=== PATIENT | female | born 1945 | race Caucasian/White ===

== ENCOUNTER 2019-03-25 09:32 | Observation (INO) | payer MEDICARE, BC ==
[2019-03-25 09:51] LABS: #Eosinphils 0.1 thou/uL (0.0-0.7); #Lymphocytes 1.8 thou/uL (1.20-3.40); #Monocytes 0.5 thou/uL (0.11-0.59); #Neutrophils 3.5 thou/uL (1.40-6.50); %Basophils 0.7 % (0.0-1.0); %Eosinophils 1.9 % (0.0-10.0); %Lymphocytes 29.9 % (21.0-51.0); %Monocytes 7.9 % (0.0-10.0); %Neutrophils 59.6 % (42.0-75.0); Hemoglobin 15.6 g/dL (12.0-16.0); Mean Corpuscular HGB CONC 34.2 g/dL (32.0-36.0); Mean Corpuscular Hemoglobin 31.4 pg (27.0-31.0); Mean Corpuscular Volume 91.7 fL (78.0-98.0); Mean Platelet Volume 7.9 fL (7.4-10.4); Platelet Count 196 thou/uL (130-400); RBC Distribution Width 11.9 % (11.5-14.5); Red Blood Cell (RBC) Count 4.98 mill/uL (4.20-5.40); White Blood Cell (WBC) Count 5.9 thou/uL (4.8-10.8)
--- NOTE | 2019-03-25 10:01 | RAD ---
XR Chest 1 View Portable HISTORY: Chest pain, shortness COMPARISON: 02/14/2009 FINDINGS: The heart size is normal. The lungs are well expanded without focal areas of consolidation, pneumothorax or pleural effusions. IMPRESSION: No radiographic evidence of acute cardiopulmonary process.
[2019-03-25 10:04] LABS: PTT 29.6 SEC (22.9-36.1); Prothrombin Time 13.5 SEC (12.0-14.7)
[2019-03-25 10:15] LABS: ALT (SGPT) 12 U/L (8-55); AST (SGOT) 19 U/L (5-34); Albumin 4.7 g/dL (3.4-4.8); Alkaline Phosphatase 49 U/L (40-150); Anion Gap 15 mmol/L (10-20); BUN (Urea Nitrogen) 7 mg/dL (9.8-20.1); Bilirubin, Total 1.2 mg/dL (0.2-1.2); Calc. Creatinine Clearance 0 mL/min (70-130); Calcium 10.2 mg/dL (7.8-10.44); Carbon Dioxide 25 mmol/L (23-31); Chloride 90 mmol/L (98-107); Estimated GFR-MDRD 75; Globulin 2.9 g/dL (2.4-3.5); Glucose 116 mg/dL (83-110); Protein, Total 7.6 g/dL (6.0-8.3); Sodium 127 mmol/L (136-145)
[2019-03-25] MEDS ORDERED: Potassium Chloride 20 MEQ TAB ONE (11:00)
[2019-03-25] MEDS ORDERED: Acetaminophen 325 MG TAB PO PRN (12:36)
[2019-03-25] MEDS ORDERED: Ondansetron ODT 4 MG TAB SL PRN (12:36)
[2019-03-25] MEDS ORDERED: Ondansetron PF 4 MG/2 ML Vial IVP PRN (12:36)
[2019-03-25 12:44] VITALS: BMI 34.7
[2019-03-25 13:39] LABS: Troponin I 0.016 ng/mL (< 0.028)
[2019-03-25 15:34] LABS: Bacteria/HPF None Seen HPF (None Seen); Bilirubin Negative (Negative); Blood, Urine Negative (Negative); Clarity Clear (Clear); Glucose, Urine (Dipstick) Normal (Negative); Leukocyte Negative Leu/uL (Negative); Nitrite Negative (Negative); Protein, Urine (Dipstick) Negative (Neg-Trace); Squamous Epithelial 0-3 HPF (0-3); Urobilinogen Normal mg/dL (Less than 2)
[2019-03-25 15:34] LABS: Anion Gap 12 mmol/L (10-20); BUN (Urea Nitrogen) 6 mg/dL (9.8-20.1); Calc. Creatinine Clearance 89 mL/min (70-130); Calcium 9.9 mg/dL (7.8-10.44); Carbon Dioxide 27 mmol/L (23-31); Chloride 97 mmol/L (98-107); Estimated GFR-MDRD 77; Glucose 126 mg/dL (83-110); Potassium 4.1 mmol/L (3.5-5.1); Sodium 132 mmol/L (136-145)
[2019-03-25] MEDS ORDERED: Amlodipine 10 MG TAB PO SCH (16:00)
[2019-03-25] MEDS ORDERED: Magnesium 2 GM/50 ML 2 GM in Premix Bag 1 BAG IVPB SCH (16:00)
[2019-03-25 16:08] LABS: Troponin I Less than 0.010 ng/mL (< 0.028)
[2019-03-25] MEDS ORDERED: Dronedarone HCl 400 MG TAB PO SCH (17:30)
--- NOTE | 2019-03-25 18:05 | HP ---
PRIMARY CARE PHYSICIAN: Watson Johnson MD CHIEF COMPLAINT: Abnormal cardiac rhythm. HISTORY OF PRESENT ILLNESS: A 73-year-old female with past medical history significant only for hypertension, who was found by the PCP during routine annual checkup to have tachyarrhythmia, hence were asked to go to the emergency room. On presentation to the emergency room, the patient was found to be tachycardic with heart rate of 174. She denied any symptom. Denied shortness of breath, chest pain, abdominal pain, nausea, vomiting, headache, or palpitation. She, however, admitted to chronic mild bilateral leg edema. Further evaluation in the ER with BMP showed hyponatremia with sodium of 127 and hypokalemia with potassium of 3.0. The patient was treated with 1 L normal saline and 40 mEq of potassium chloride with improvement in heart rate. Initial EKG obtained showed supraventricular tachycardia with rate of 142. Initial troponin was unremarkable and the patient was admitted for further evaluation and treatment. There is no history of dysuria, worsening leg swelling, abdominal pain, hematochezia, hematuria, hematemesis, or focal weakness. PAST MEDICAL HISTORY: Hypertension, hyperlipidemia. PAST SURGICAL HISTORY: 1. CS. 2. Cholecystectomy. 3. Hernia repair. FAMILY HISTORY: Reviewed, but noncontributory. SOCIAL HISTORY: The patient lives with the spouse of 57 years. She is a never smoker. Spouse is the surrogate decision maker. She is full code. ALLERGIES: NO KNOWN DRUG ALLERGIES REPORTED. HOME MEDICATIONS: 1. Chlorthalidone 12.5 mg p.o. daily. 2. Lipitor 10 mg p.o. daily. 3. Loratadine 10 mg p.o. daily. REVIEW OF SYSTEMS: 12-point review of systems performed was negative other than pertinent positives and negatives included in the history of present illness. PHYSICAL EXAMINATION: VITAL SIGNS: Initial vitals in the ER showed heart rate of 174, which was irregular; respiratory rate of 18; temperature of 98.4; SpO2 of 99% on room air; blood pressure of 172/119. Most current vitals at 12:29 p.m. showed temperature 97.9, pulse 145, respiratory rate 24, SpO2 of 97% on room air, blood pressure 175/92. GENERAL: Healthy-looking, obese, elderly female, in no distress. Afebrile. Anicteric. Acyanotic. HEENT: Normocephalic, atraumatic. Pupils are equal and reacting to light. Oral mucosa is moist. NECK: Supple and nontender with full range of motion. No lymphadenopathy or thyromegaly appreciated. CARDIOVASCULAR: Regular rhythm with frequent ectopy. Normal heart sounds 1 and 2 with no obvious murmur was appreciated. RESPIRATORY: Good air entry bilaterally with no obvious crackle or rhonchi or use of accessory muscles. GI: Abdomen is obese, soft, nontender, nondistended with normal bowel sounds. EXTREMITIES: Fullness of both legs noted, but there was no overt edema appreciated. Distal pulses are palpable. NEUROLOGIC: Conscious, alert, oriented x3 with appropriate mental status. Cranial nerves 2 through 12 are grossly intact. The patient moves all extremities. DIAGNOSTIC DATA: CBC showed WBC count of 5.9, hemoglobin of 15.6, MCV of 91.7, platelets of 196. Coagulation panel showed PT 13.5, INR 1.0, and PTT 29.6. CMP on presentation showed sodium 127, potassium 3.0, chloride 90, CO2 of 25, BUN 7, creatinine 0.75, glucose 116, calcium 10.2, total bilirubin 1.2, AST 19, ALT 12, alkaline phosphatase 49, total protein 7.6, albumin 4.7, globulin 2.9. Serial troponin has been unremarkable. Repeat BMP 6 hours after the initial showed sodium 132, potassium 4.1, chloride 97, CO2 of 27, BUN 6, creatinine 0.74, glucose 126, calcium 9.9. Initial EKG on presentation showed tachyarrhythmia, most likely atrial flutter or SVT. Repeat EKG 1 hour after the initial following normal saline showed regular tachyarrhythmia with wavy baseline, which made it impossible to discern the rhythm, but it looks more like sinus tachycardia. That EKG performed in the ER at 10:11 a.m. showed sinus tachycardia with frequent APCs with rate of [address] and T-wave abnormalities. Repeat EKG at 14:13 p.m. showed sinus rhythm with PVCs with rate of 76. No obvious ischemic changes were noted. Chest x-ray showed normal heart size with well-expanded lungs with no focal areas of consolidation, pneumothorax, or pleural effusion. ASSESSMENT: 1. Tachyarrhythmia: Initial reading is either atrial flutter or supraventricular tachycardia. This most likely is related to severe hypokalemia and hyponatremia. Electrolyte derangement are felt to be related to thiazide diuretic therapy. 2. Hypokalemia with potassium of 3.0. Repleted with 40 mEq of potassium chloride with appropriate increase in potassium level. Hypokalemia is due to thiazide diuretic therapy. 3. Hyponatremia: This is chronic with acute worsening. Review of medical record showed that baseline is around 132 to 133, but the patient had 127. Received 1 L of normal saline with increase in plasma sodium to 132. 4. Hypertension: Uncontrolled. 5. Hyperlipidemia: The patient is supposed to be on Lipitor, but has not been very compliant as she think Lipitor made her leg pain worse. PLAN: 1. We get urine osmolality as well as urine sodium and plasma osmolality. 2. We will discontinue thiazide diuretic. 3. We will start amlodipine for blood pressure control. 4. Cardiac diet will be commenced. 5. No further IV fluid. We will monitor electrolytes. 6. We will also get cardiology consult given paroxysmal tachyarrhythmia. 7. Rule out acute myocardial infarction with serial troponin. 8. Get echocardiogram. 9. DVT prophylaxis with Lovenox. 10. Code status: Full code. The patient's is the surrogate decision maker. Job ID: [id number]
[2019-03-25 21:40] LABS: ALT (SGPT) 11 U/L (8-55); AST (SGOT) 16 U/L (5-34); Albumin 3.9 g/dL (3.4-4.8); Alkaline Phosphatase 39 U/L (40-150); Anion Gap 12 mmol/L (10-20); BUN (Urea Nitrogen) 10 mg/dL (9.8-20.1); Bilirubin, Total 0.9 mg/dL (0.2-1.2); Calc. Creatinine Clearance 100 mL/min (70-130); Calcium 9.1 mg/dL (7.8-10.44); Carbon Dioxide 23 mmol/L (23-31); Chloride 98 mmol/L (98-107); Estimated GFR-MDRD 87; Globulin 2.3 g/dL (2.4-3.5); Glucose 112 mg/dL (83-110); Magnesium 2.2 mg/dL (1.6-2.6); Potassium 3.8 mmol/L (3.5-5.1); Protein, Total 6.2 g/dL (6.0-8.3); Sodium 129 mmol/L (136-145)
[2019-03-25 21:45] LABS: Troponin I 0.017 ng/mL (< 0.028)
--- NOTE | 2019-03-26 01:08 | CON ---
DATE OF CONSULTATION: 03/25/2019 INDICATION FOR CONSULTATION: A 73-year-old female with new onset atrial fibrillation. HISTORY OF PRESENT ILLNESS: This very pleasant 73-year-old female was in her doctor's office this morning, Dr. Johnson, who was noted to have an irregular heart rate. She was sent to the emergency room, was found to have atrial fibrillation. This has been intermittent. When she arrived to the emergency room, she actually was, I believe in atrial fibrillation. She then since has converted to sinus rhythm, but now is back in her atrial fibrillation, but had a controlled ventricular response. She has had no previous history of atrial fibrillation in the past. She did not feel the atrial fibrillation even though she was tachycardic. She does have a history of hypertension, hypercholesterolemia. She has no complaints of chest pain. She does have some mild shortness of breath with exertion. She has had some lower extremity edema which resolves overnight, but then returns during the day. Otherwise, she has had no previous cardiac history. PAST MEDICAL HISTORY: Significant for hypertension, psoriasis, hernia repair, , bilateral cataract surgery, and cholecystectomy. SOCIAL HISTORY: She has no history of alcohol or tobacco abuse. She has children who are alive and well. FAMILY HISTORY: One brother with coronary artery disease and also atrial fibrillation. ALLERGIES: NONE. MEDICATIONS: Prior to admission include; 1. Chlorthalidone. 2. Claritin. 3. Lipitor. She at this time has been placed on; 1. Magnesium. 2. Norvasc. 3. Lovenox. 4. Tylenol. ALLERGIES: NONE. REVIEW OF SYSTEMS: A 12-point review of systems unremarkable except as noted in the history of present illness with lower extremity edema. PHYSICAL EXAMINATION: GENERAL: Reveals a well-developed, well-nourished female. VITAL SIGNS: Blood pressure 150/69, heart rate is anywhere between 85-145, at this time is in the high 70s. She is afebrile. Respiratory rate 20 to 24. HEENT: Shows the head to be normocephalic and atraumatic. Carotid pulses are present. There are no bruits. CHEST: Clear to auscultation without rales, rhonchi, or wheezing. CARDIOVASCULAR: At this time reveals a somewhat irregular rhythm, but there are no gross murmurs, heaves, thrills, bruits, or rubs. ABDOMEN: Shows some obesity with a well-healed surgical incision. There are no other significant abnormalities noted. No tenderness. EXTREMITIES: Show no clubbing, cyanosis, or edema at this time. Pedal pulses are present. NEUROLOGIC: She appears to be fully intact with normal strength and normal tone. Neurologically, she otherwise remains stable. SKIN: Warm and dry. PSYCHOSOCIAL: Also appears to be stable. IMAGING: EKG shows atrial fibrillation, which converted to normal sinus rhythm. At this time, the monitor is now showing again atrial fibrillation with a controlled ventricular response. Chest x-ray was unremarkable. IMPRESSION: 1. New-onset atrial fibrillation or possible new-onset atrial fibrillation which has been intermittent in nature. We will start her on Multaq to continue her in sinus rhythm since she is self converted to sinus rhythm. We will suggest that she at least be on oral anticoagulation for a while. We will start her on Eliquis 5 mg b.i.d. If she remains in sinus rhythm then we can stop this after a couple of weeks or a month and she can take an aspirin a day. 2. Hypertension. We will need to readjust her medications as needed. 3. History of sleep apnea. She was diagnosed in 2013. Need to reassess to see whether or not she still needs to have a BiPAP mask and this should be provided in the hospital as certainly this can be the underlying cause of atrial fibrillation. Otherwise, she may eventually need to undergo a stress test to rule out evidence for underlying ischemia as a possible etiology of her atrial fibrillation. We will also need to check a thyroid function and I believe an echocardiogram has already been ordered. We will review that tomorrow. Job ID: [id number]
[2019-03-26 06:40] LABS: Anion Gap 12 mmol/L (10-20); BUN (Urea Nitrogen) 9 mg/dL (9.8-20.1); Calc. Creatinine Clearance 105 mL/min (70-130); Calcium 9.2 mg/dL (7.8-10.44); Carbon Dioxide 23 mmol/L (23-31); Cardiac Risk 3.4 (Less than 4.5); Chloride 99 mmol/L (98-107); Cholesterol 157 mg/dl (< 200 Desired); Estimated GFR-MDRD Greater than 90; Glucose 96 mg/dL (83-110); HDL Cholesterol 46 mg/dL (>60 Neg Risk); LDL Cholesterol, Calculated 99 mg/dL; Potassium 3.8 mmol/L (3.5-5.1); Sodium 130 mmol/L (136-145); Triglycerides 62 mg/dL (Less than 150)
[2019-03-26] MEDS ORDERED: Loratadine 10 MG TAB PO PRN (07:34)
[2019-03-26] MEDS ORDERED: hydrALAZINE 20 MG/ML VIAL SLOW IVP PRN (07:37)
[2019-03-26] MEDS ORDERED: Loperamide HCl 2 MG CAP PO PRN (07:37)
[2019-03-26] MEDS ORDERED: Bisacodyl 10 MG SUPP PR PRN (07:37)
[2019-03-26] MEDS ORDERED: Zolpidem Tartrate 5 MG TAB PO PRN (07:37)
[2019-03-26] MEDS ORDERED: Artificial Tears 18 DROP/0.9 ML EA EYE PRN (07:37)
[2019-03-26] MEDS ORDERED: Senokot S 8.6-50 MG TAB PO PRN (07:37)
[2019-03-26] MEDS ORDERED: Cepastat Lozenges 1 LOZ PO PRN (07:37)
[2019-03-26] MEDS ORDERED: Sodium Chloride 0.65% Nasal 44 ML BOT EA NARE PRN (07:37)
[2019-03-26] MEDS ORDERED: Diabetic Tussin 200 MG/10 ML UDCUP PO PRN (07:37)
[2019-03-26] MEDS ORDERED: HYDROcodone/Acetaminophen 5/325 mg Tablet PO PRN (07:37)
[2019-03-26] MEDS ORDERED: Dronedarone HCl 400 MG TAB PO SCH (08:00)
[2019-03-26] MEDS ORDERED: Lisinopril 5 MG TAB PO SCH (09:00)
[2019-03-26] MEDS ORDERED: Apixaban 5 MG TAB PO SCH (09:00)
[2019-03-26] MEDS ORDERED: Atorvastatin Calcium 10 MG TAB PO SCH (09:00)
[2019-03-26] MEDS ORDERED: Enoxaparin Sodium 40 MG/0.4 ML SYRINGE SC SCH (09:00)
--- NOTE | 2019-03-26 10:38 | PDOC.CTH ---
Cardiology Progress Note - Subjective The pt was seen and examined. No cardiac complaints. No Afib since the pt admitted to the hospital. S/p 2 episodes of PATs this AM. The pt was asymptomatic. - Objective Vital Signs Temp Pulse Resp BP Pulse Ox 03/26/19 07:22 98.2 F 70 16 123/60 96 03/26/19 04:45 97.9 F 77 16 138/65 98 Weight 190 lb 14.4 oz 03/25/19 03/26/19 03/27/19 06:59 06:59 06:59 Intake Total 520 Output Total 1600 600 Balance -1080 -600 - Physical Examination General/Neuro: alert & oriented x3 Neck: no JVD present Lungs: CTA Heart: RRR Abdomen: soft Extremities: other: (No edema) - Telemetry Telemetry Rhythm: SR - Labs Result Diagrams: 03/25/19 09:41 03/26/19 05:56 Troponin/CKMB Troponin I 0.017 ng/mL (< 0.028) 03/25/19 21:13 - Assessment/Plan 1. New- onset Afib - remains in SR with 2 episodes of PATs this AM; Asymptomatic ; On Multaq and Eliquis, which she will be on for 1 month and may changed to ASA is she cont. in SR. possible Stress test as outpt. 2. HTN - stable 3. HLD - 4. Sleep Apnea with Cpap at HS MAR reviewed * From Cardiac standpoint, the pt is stable d/c home after Echo is reviewed. * The pt will f/u with Dr Rueda' office within 2 wks with possible Stress test as outpt. Review of Systems - Review of Systems Constitutional: reports: no symptoms reported EENTM: reports: no symptoms reported Respiratory: reports: no symptoms reported Cardiac (ROS): reports: no symptoms reported ABD/GI: reports: no symptoms reported : reports: no symptoms reported Musculoskeletal: reports: no symptoms reported Skin: reports: no symptoms reported
[2019-03-26 11:40] VITALS: BP 103/51; TEMP 98.6
--- NOTE | 2019-03-26 13:01 | DIS ---
DATE OF ADMISSION: 03/25/2019 DATE OF DISCHARGE: 03/26/2019 PRIMARY CARE PHYSICIAN: Watson Johnson MD DISCHARGE DISPOSITION: Home. PRIMARY DISCHARGE DIAGNOSES: Paroxysmal atrial fibrillation and hyponatremia due to chlorthalidone. SECONDARY DISCHARGE DIAGNOSES: Hypertension, dyslipidemia, obesity with BMI of 34, sleep apnea. PRIMARY PROCEDURE/OPERATION: None. RADIOLOGICAL INVESTIGATION: Chest x-ray, normal. Echocardiography was unremarkable. SIGNIFICANT LABORATORY DATA: WBC 5.9, hemoglobin 15.6, platelet 196. INR 1.0. Sodium 130, creatinine 0.63. LDL 99. LFT normal. Troponin negative. TSH 0.95. Urinalysis unremarkable. Urine sodium 56, urine osmolality 154, serum osmolality 275. Magnesium 2.2. DISCHARGE MEDICATIONS: 1. Multaq 400 mg p.o. b.i.d. 2. Lisinopril 5 mg p.o. daily. 3. Eliquis 5 mg p.o. b.i.d. 4. Claritin 10 mg p.o. daily p.r.n. 5. Lipitor 10 mg p.o. daily. CONTRAINDICATION: None. CODE STATUS: Full code. INPATIENT COMPUTER CUSTOMER SUPPORT SPECIALIST: Amy Rueda MD, Cardiology. TEST RESULT PENDING ON DISCHARGE: None. ALLERGIES: NO KNOWN DRUG ALLERGIES. DISCHARGE PLAN: Posthospital, the patient will follow up with Dr. Rueda in 2 to 3 weeks. The patient will follow up with primary care physician in 1 week. HOSPITAL COURSE: A 73-year-old female with above-mentioned medical problem, who was admitted by Dr. Whittaker. Please see his H and P for further details. The patient was admitted for abnormal cardiac rhythm, which was incidentally found by primary care physician. The patient was found with new onset atrial fibrillation, duration was not certain. The patient was evaluated by Cardiology. The patient was already converted to sinus rhythm. To maintain rhythm, Cardiology recommended to start Multaq and also recommended to start Eliquis therapy. The patient will continue Eliquis therapy 1 month and if she remains in sinus rhythm then, then outpatient basis Cardiology will decide about changing her Eliquis to aspirin only. She has very low CHADS2 score. The patient has hypertension and she is taking chlorthalidone and that is why her sodium and potassium were low, which was replaced while in hospital. We are discontinuing chlorthalidone and we are starting lisinopril for hypertension. Risk and benefit of chronic anticoagulation discussed. At this point, Cardiology considering to do outpatient stress test. During this admission, echocardiography showed normal finding. The patient is seen and examined. Review of systems reviewed negative. Her physical examination is unremarkable. Cardiology cleared her for discharge. All new medication prescription sent to her pharmacy. Job ID: [id number]
== END 2019-03-26 12:25 | disposition home or self-care (01) ==
LOC: ERS 09:32 → 2SW 12:29
PROVIDERS: ADMIT Internal Medicine Nephrology; ATTEND Internal Medicine Nephrology
DX: I48.0 Paroxysmal atrial fibrillation (principal); E87.1 Hypo-osmolality and hyponatremia; T50.2X5A Adverse effect of carbonic-anhydrase inhibitors, benzothiadiazides and other diuretics, initial encounter; I10 Essential (primary) hypertension; E78.5 Hyperlipidemia, unspecified; E66.9 Obesity, unspecified; G47.30 Sleep apnea, unspecified; E87.6 Hypokalemia; Z68.34 Body mass index [BMI] 34.0-34.9, adult; Z79.899 Other long term (current) drug therapy
CPT/HCPCS: 71045; 80048 ×2; 80053 ×2; 80061; 81001; 83735; 83930; 83935; 84300; 84443; 84484 ×2; 85025; 85610; 85730; 93005 ×2; 93306; 96360; 96365; 99285; G0378 ×3; G0463; 36415; 93010; 99214; J3475

== ENCOUNTER 2019-03-26 16:50 | Observation (INO) | payer MEDICARE, BC ==
--- NOTE | 2019-03-26 17:23 | CT ---
CT Brain WO Con: 03/26/2019 5:03 PM CLINICAL HISTORY: Syncopal episode. IMAGING TECHNIQUE: Multiple CT images were obtained of the brain without IV contrast. COMPARISON: None. FINDINGS: Infarct: No acute infarct evident. Hemorrhage: None.. Hydrocephalus: None.. Basal cisterns: Normal.. Cerebral parenchyma: Normal.. Midline shift: None.. Cerebellum: Normal. Brainstem: Normal. OTHER: Calvarium: Intact.. Visualized Paranasal sinuses: Clear.. Extracranial soft tissues:Normal. IMPRESSION: No acute intracranial abnormality.
[2019-03-26 17:54] LABS: #Eosinphils 0.1 thou/uL (0.0-0.7); #Lymphocytes 1.7 thou/uL (1.20-3.40); #Monocytes 0.6 thou/uL (0.11-0.59); #Neutrophils 4.8 thou/uL (1.40-6.50); %Basophils 0.3 % (0.0-1.0); %Eosinophils 1.1 % (0.0-10.0); %Lymphocytes 23.5 % (21.0-51.0); %Monocytes 8.1 % (0.0-10.0); Hemoglobin 14.3 g/dL (12.0-16.0); Mean Corpuscular Hemoglobin 33.7 pg (27.0-31.0); Mean Corpuscular Volume 93.6 fL (78.0-98.0); Mean Platelet Volume 7.9 fL (7.4-10.4); Platelet Count 209 thou/uL (130-400); RBC Distribution Width 11.9 % (11.5-14.5); Red Blood Cell (RBC) Count 4.24 mill/uL (4.20-5.40); White Blood Cell (WBC) Count 7.2 thou/uL (4.8-10.8)
[2019-03-26 18:17] LABS: ALT (SGPT) 10 U/L (8-55); AST (SGOT) 14 U/L (5-34); Albumin 4.2 g/dL (3.4-4.8); Alkaline Phosphatase 47 U/L (40-150); Anion Gap 14 mmol/L (10-20); BUN (Urea Nitrogen) 15 mg/dL (9.8-20.1); Bilirubin, Total 0.8 mg/dL (0.2-1.2); CK (CPK) 97 U/L (29-168); Calc. Creatinine Clearance 0 mL/min (70-130); Calcium 9.9 mg/dL (7.8-10.44); Carbon Dioxide 25 mmol/L (23-31); Chloride 95 mmol/L (98-107); Estimated GFR-MDRD 65; Globulin 2.1 g/dL (2.4-3.5); Glucose 138 mg/dL (83-110); Potassium 3.6 mmol/L (3.5-5.1); Protein, Total 6.3 g/dL (6.0-8.3); Sodium 130 mmol/L (136-145)
[2019-03-26] MEDS ORDERED: Loratadine 10 MG TAB PO PRN (19:18)
[2019-03-26] MEDS ORDERED: Senokot S 8.6-50 MG TAB PO PRN (19:20)
[2019-03-26] MEDS ORDERED: Acetaminophen 650 MG Suppository PR PRN (19:20)
--- NOTE | 2019-03-26 19:40 | RAD ---
Chest 2 views HISTORY: Dyspnea. COMPARISON: 03/25/2019. FINDINGS: Cardiac silhouette and pulmonary vasculature are unremarkable. Mediastinum is midline. Even tration of the left hemidiaphragm is unchanged in appearance. No confluent airspace consolidation, pneumothorax, or pleural fluid. IMPRESSION: No active cardiopulmonary abnormalities are demonstrated.
[2019-03-26 20:12] VITALS: BMI 34.7
[2019-03-26] MEDS ORDERED: Dronedarone HCl 400 MG TAB PO SCH (20:30)
[2019-03-26] MEDS: Apixaban 5 MG TAB PO SCH (20:32)
[2019-03-26] MEDS: Famotidine 20 MG TAB PO SCH (20:32)
[2019-03-26] MEDS: Acetaminophen 325 MG TAB PO PRN (20:33)
[2019-03-26] MEDS ORDERED: Famotidine/PF 20 mg/2ml Vial SLOW IVP SCH (21:00)
[2019-03-26 21:11] LABS: Troponin I Less than 0.010 ng/mL (< 0.028)
--- NOTE | 2019-03-27 00:03 | HP ---
CHIEF COMPLAINT: Shortness of breath and syncope. HISTORY OF PRESENT ILLNESS: Ms. Wilde is a 73-year-old woman, who was just discharged from the hospital today after being admitted with atrial fibrillation, RVR. The patient was seen by Dr. Rueda for paroxysmal atrial fibrillation and underwent an echocardiogram, which was unremarkable. She was started on Multaq as well as Eliquis with plans to follow up as an outpatient. She was doing well at the time of discharge. The patient states she had no complaints prior to going home. Later in the day today, while at a bridal shower with her family, she began to feel generally unwell. Family states that she appeared very pale and clammy. She was later found lying in bed and complained of feeling short of breath. They attempted to stand the patient out, but she was extremely weak. While sitting up, the patient suddenly fell over on the bed and passed out. She came through within seconds. She was still feeling generally unwell. She was immediately brought into the emergency department and on arrival was noted to have fairly stable vital signs. She had a low-grade temperature of 99. Otherwise, was not tachycardic or tachypneic. An EKG was done showing sinus rhythm with premature supraventricular complexes. Heart rate of 82. She underwent CT imaging of the head that showed no acute intracranial abnormalities. Laboratory studies were done showing a normal full blood count. Sodium was 130, which was stable. Potassium 3.6, chloride 95, carbon dioxide 25, anion gap 14, BUN 15, creatinine 0.85, GFR 65, glucose 128, magnesium 2.0, calcium 9.9. LFTs unremarkable. Troponin was 0.025 and CK 97. Albumin 4.2. The patient did not require any medications in the emergency department. REVIEW OF SYSTEMS: All other review of systems apart from those mentioned above in HPI are negative. She denies any hemoptysis or cough. Denies having any diarrhea or constipation. No urinary symptoms. No fevers. No extremity weakness or numbness. Denies any dizziness. Reports a mild headache, which seems to be subsiding. She states overall she feels drained and tired. PAST MEDICAL HISTORY: 1. Newly diagnosed paroxysmal atrial fibrillation. 2. Psoriasis. 3. Hypertension. PAST SURGICAL HISTORY: 1. Hernia repair. 2. Cholecystectomy. 3. . SOCIAL HISTORY: She denies any alcohol use or drug use. No smoking. ALLERGIES: NO KNOWN DRUG ALLERGIES. CURRENT MEDICATIONS: 1. Claritin. 2. Multaq. 3. Lisinopril. 4. Eliquis. 5. Lipitor. PHYSICAL EXAMINATION: GENERAL: The patient appears fatigued, but well developed, and in no acute distress. VITAL SIGNS: Temperature 98.7, blood pressure 130/77, pulse 72, respirations 16, O2 saturation 100% on room air. HEENT: Normocephalic and atraumatic. Pupils are equal, round, and reactive to light. Sclerae without icterus. Oropharynx is clear. NECK: Supple. LUNGS: Clear to auscultation bilaterally. CARDIAC: Regular rate and rhythm. ABDOMEN: Soft, nontender, nondistended. Normoactive bowel sounds present. EXTREMITIES: No lower leg swelling or edema. NEUROLOGIC: Alert and oriented x3. No neuro deficits. Speech normal. Sensation intact. Power 5/5 in all limbs. SKIN: Without rash or jaundice. IMPRESSION AND PLAN: Ms. Wilde is a pleasant 73-year-old woman, who was just discharged from the hospital earlier today around noon after being evaluated for new onset atrial fibrillation and discharged on Eliquis as well as Multaq. The patient states she was feeling well in herself and without any complaints prior to discharge. While being at a bridal shower, found by her family she began to feel short of breath and generally unwell. She had a syncopal episode and is now being referred for management of the followin. Syncope. CT of the brain was negative. The patient reports associated shortness of breath prior to this episode. Denies any chest pain. We will continue to trend troponins. We will add D-dimer as well. Chest x-ray will also be ordered. A consultation has been placed to Dr. Rueda as this syncopal episode may have been related to an underlying arrhythmia. 2. Hypertension. We will resume home medications once verified. 3. Hyperlipidemia. We will resume home medications. 4. Atrial fibrillation. We will resume Multaq and Eliquis. 5. Gastrointestinal prophylaxis. 6. Deep venous thrombosis prophylaxis. The patient already on anticoagulation. 7. Code status full. Her surrogate decision maker is her , Sundeep Wilde. The patient's case will be discussed with attending for further recommendations. Job ID: [id number]
[2019-03-27 00:14] LABS: Troponin I Less than 0.010 ng/mL (< 0.028)
[2019-03-27] MEDS: Acetaminophen 325 MG TAB PO PRN ×2 (04:46→09:49)
[2019-03-27 05:30] LABS: #Eosinphils 0.2 thou/uL (0.0-0.7); #Lymphocytes 2.1 thou/uL (1.20-3.40); #Monocytes 0.5 thou/uL (0.11-0.59); #Neutrophils 3.6 thou/uL (1.40-6.50); %Basophils 0.3 % (0.0-1.0); %Eosinophils 2.6 % (0.0-10.0); %Lymphocytes 32.4 % (21.0-51.0); %Monocytes 8.4 % (0.0-10.0); %Neutrophils 56.3 % (42.0-75.0); Hemoglobin 12.8 g/dL (12.0-16.0); Mean Corpuscular HGB CONC 35.3 g/dL (32.0-36.0); Mean Corpuscular Volume 93.6 fL (78.0-98.0); Platelet Count 198 thou/uL (130-400); RBC Distribution Width 11.9 % (11.5-14.5); Red Blood Cell (RBC) Count 3.88 mill/uL (4.20-5.40); White Blood Cell (WBC) Count 6.5 thou/uL (4.8-10.8)
[2019-03-27 05:49] LABS: Anion Gap 11 mmol/L (10-20); BUN (Urea Nitrogen) 16 mg/dL (9.8-20.1); Calc. Creatinine Clearance 99 mL/min (70-130); Calcium 9.3 mg/dL (7.8-10.44); Carbon Dioxide 24 mmol/L (23-31); Chloride 98 mmol/L (98-107); Estimated GFR-MDRD 86; Glucose 89 mg/dL (83-110); Potassium 3.1 mmol/L (3.5-5.1); Sodium 130 mmol/L (136-145)
[2019-03-27] MEDS ORDERED: Sodium Chloride 0.65% Nasal 44 ML BOT EA NARE PRN (07:14)
[2019-03-27] MEDS ORDERED: Diabetic Tussin 200 MG/10 ML UDCUP PO PRN (07:14)
[2019-03-27] MEDS ORDERED: Metoclopramide HCl 10 MG/2 ML VIAL IVP PRN (07:14)
[2019-03-27] MEDS ORDERED: Cepastat Lozenges 1 LOZ PO PRN (07:14)
[2019-03-27] MEDS ORDERED: Loperamide HCl 2 MG CAP PO PRN (07:14)
[2019-03-27] MEDS ORDERED: Bisacodyl 10 MG SUPP PR PRN (07:14)
[2019-03-27] MEDS ORDERED: Artificial Tears 18 DROP/0.9 ML EA EYE PRN (07:14)
[2019-03-27] MEDS ORDERED: HYDROcodone/Acetaminophen 5/325 mg Tablet PO PRN (07:14)
[2019-03-27] MEDS ORDERED: hydrALAZINE 20 MG/ML VIAL SLOW IVP PRN (07:14)
[2019-03-27] MEDS ORDERED: Potassium Chloride 20 MEQ TAB PO SCH (07:15)
[2019-03-27] MEDS: Atorvastatin Calcium 10 MG TAB PO SCH (08:19)
[2019-03-27] MEDS: Dronedarone HCl 400 MG TAB PO SCH ×2 (08:19→16:12)
[2019-03-27] MEDS: Apixaban 5 MG TAB PO SCH ×2 (08:19→20:15)
[2019-03-27] MEDS: Famotidine 20 MG TAB PO SCH ×2 (08:19→20:15)
[2019-03-27] MEDS ORDERED: Lisinopril 5 MG TAB PO SCH (09:00)
[2019-03-27] MEDS: NS 0.9% w/ 20 MEQ KCL 1,000 ML/1,000 ML BAG IV SCH ×2 (09:44→21:43)
--- NOTE | 2019-03-27 09:57 | PDOC.HOSPP ---
- Subjective Subjective: Patient seen and examined. No new complaints. No overnight events - Objective Vital Signs & Weight: Vital Signs (12 hours) Temp Pulse Resp BP Pulse Ox 03/27/19 07:22 97.4 F L 71 16 119/57 L 100 03/27/19 04:46 98.2 F 67 18 126/58 L 94 L 03/26/19 23:00 97.9 F 82 17 123/59 L 99 Weight Weight 190 lb 3.2 oz I&O: 03/26/19 03/27/19 03/28/19 06:59 06:59 06:59 Intake Total 400 Output Total 350 Balance 50 Result Diagrams: 03/27/19 04:36 03/27/19 04:36 EKG Reviewed by me: Yes ROS - Review of Systems All systems: All other ROS were reviewed and found negative. Constitutional: reports: weakness. denies: fever, chills, sweats, malaise, other Respiratory: denies: cough, dry, shortness of breath, hemoptysis, SOB with excertion, pleuritic pain, sputum, wheezing, other Cardiovascular: denies: chest pain, palpitations, orthopnea, paroxysmal noc. dyspnea, edema, light headedness, other Gastrointestinal: denies: nausea, vomitting, abdominal pain, diarrhea, constipation, melena, hematochezia, other Genitourinary: denies: dysuria, frequency, incontinence, hematuria, retention, other Musculoskeletal: denies: neck pain, shoulder pain, arm pain, back pain, hand pain, leg pain, foot pain, other - Medication Medications: Active Medications Generic Name Dose Route Start Last Admin Trade Name Gloria PRN Reason Stop Dose Admin Acetaminophen 650 mg 03/26/19 19:20 03/27/19 09:49 Tylenol PO 650 mg Q4H PRN Administration Headache/Fever/Mild Pain (1-3) Apixaban 5 mg 03/26/19 21:00 03/27/19 08:19 Eliquis PO 5 mg BID AMNA Administration Atorvastatin Calcium 10 mg 03/27/19 09:00 03/27/19 08:19 Lipitor PO 10 mg DAILY AMNA Administration Dronedarone 400 mg 03/27/19 08:00 03/27/19 08:19 Multaq PO 400 mg BID-WM AMNA Administration Famotidine 20 mg 03/26/19 21:00 03/27/19 08:19 Pepcid PO 20 mg BID AMNA Administration Potassium Chloride/Sodium Chloride 1,000 ml in 1,000 mls @ 100 mls/hr 07:15 03/27/19 09:44 Ns 0.9% W/ 20 Meq Kcl IV 1,000 mls .Q10H AMNA Administration Sodium Chloride 10 ml 03/26/19 19:20 03/26/19 20:34 Flush - Normal Saline IVF 10 ml Q12HR PRN Administration Saline Flush - Exam NAD, awake alert ENT: normocephalic atraumatic, no oropharyngeal lesions Neck: symmetric, no JVD, no Thyromegaly Heart: RRR, no murmur, no gallops, no rubs Respiratory: CTAB, no wheezes, no rales, no ronchi Gastrointestinal: soft, non-tender, non-distended, normal bowel sounds Extremities: no cyanosis, no clubbing, no edema Skin: normal turgor, no lesions, no rashes Neurological: CN's grossly intact, normal sensation to touch, no focal deficits Musculoskeletal: normal tone, normal strength Psychiatric: normal affect, normal behavior, A&O x 3 Hosp A/P (1) Atrial fibrillation Code(s): I48.91 - UNSPECIFIED ATRIAL FIBRILLATION Status: Acute Qualifiers: Atrial fibrillation type: paroxysmal Qualified Code(s): I48.0 - Paroxysmal atrial fibrillation (2) Hypokalemia Code(s): E87.6 - HYPOKALEMIA Status: Acute (3) Hyponatremia Code(s): E87.1 - HYPO-OSMOLALITY AND HYPONATREMIA Status: Acute (4) Orthostatic hypotension Code(s): I95.1 - ORTHOSTATIC HYPOTENSION Status: Acute (5) Syncope Code(s): R55 - SYNCOPE AND COLLAPSE Status: Acute (6) Dyslipidemia Code(s): E78.5 - HYPERLIPIDEMIA, UNSPECIFIED Status: Chronic (7) Hypertension Code(s): I10 - ESSENTIAL (PRIMARY) HYPERTENSION Status: Chronic (8) Obesity (BMI 30.0-34.9) Code(s): E66.9 - OBESITY, UNSPECIFIED Status: Chronic (9) Sleep apnea Code(s): G47.30 - SLEEP APNEA, UNSPECIFIED Status: Chronic - Plan old records reviewed/req will start IVF NS with KCL 100 ml per hour repeat labs tomorrow cardiology following medication reviewed as below symptomatic treatment
--- NOTE | 2019-03-27 10:15 | PDOC.CTH ---
Cardiology Progress Note - Subjective The pt seen and examined. No overnight events. No cardiac complaints. She denied palpitation or fluttering in her chest, dizziness or lightheadedness or other cardiac complaints this AM. - Objective Vital Signs Temp Pulse Resp BP Pulse Ox 03/27/19 07:22 97.4 F L 71 16 119/57 L 100 03/27/19 04:46 98.2 F 67 18 126/58 L 94 L 03/26/19 23:00 97.9 F 82 17 123/59 L 99 Weight 190 lb 3.2 oz 03/26/19 03/27/19 03/28/19 06:59 06:59 06:59 Intake Total 400 Output Total 350 Balance 50 - Physical Examination General/Neuro: alert & oriented x3 Neck: no JVD present Lungs: CTA Heart: RRR Abdomen: soft Extremities: other: (No edema) - Telemetry Telemetry Rhythm: SR - Labs Result Diagrams: 03/27/19 04:36 03/27/19 04:36 Troponin/CKMB Troponin I Less than 0.010 ng/mL (< 0.028) 03/26/19 23:33 - Assessment/Plan 1. S/p syncopal episode - She reported that she passed out for 5 mins while she was sitting and chatting with her family. She felt "different feeling" since she went back to her home after she was d/janet from hospital yesterday; She denied other cardiac complaints prior to the episode. Plan for LINQ placement on Thursday by Dr Rueda 2. Parox Afib - several Afib episodes early this AM; on Multaq and Eliquis 5mg BID 3. Orthostatic hypotension - Instructed to wear compression stockings; no medication for now due to mildly hypotensive. Volume replacement and re- evaluate orthostatics. 4. Hypokalemia - replaced by PCP today 5. HLD - 6. NOLAN with Cpap at HS 7. Obese - regular exercise was recommended to the pt MAR reviewed * Plan for LINQ placement on Thursday by Dr Rueda. Pt. seen and eval. by me. I agree with the A/P by the LUNG PULLER. I will re-evaluate the orthostatic BP later today. If she remains orthostatic then this is the likely cause of the syncope however she was sitting when the syncope occurred. She has not had any further tachycardia or pauses since admission. Will make final decision about the Linq loop recorder later today.Chest clear. RRR.No edema. [email or web address] Review of Systems - Review of Systems Constitutional: reports: no symptoms reported EENTM: reports: no symptoms reported Respiratory: reports: no symptoms reported Cardiac (ROS): reports: no symptoms reported ABD/GI: reports: no symptoms reported : reports: no symptoms reported Musculoskeletal: reports: no symptoms reported Skin: reports: no symptoms reported
[2019-03-28 05:31] LABS: #Basophils 0.1 thou/uL (0.0-0.2); #Eosinphils 0.2 thou/uL (0.0-0.7); #Monocytes 0.5 thou/uL (0.11-0.59); #Neutrophils 3.8 thou/uL (1.40-6.50); %Basophils 0.8 % (0.0-1.0); %Eosinophils 3.4 % (0.0-10.0); %Lymphocytes 30.3 % (21.0-51.0); %Monocytes 7.9 % (0.0-10.0); %Neutrophils 57.6 % (42.0-75.0); Mean Corpuscular HGB CONC 34.6 g/dL (32.0-36.0); Mean Corpuscular Hemoglobin 32.9 pg (27.0-31.0); Mean Corpuscular Volume 94.9 fL (78.0-98.0); Mean Platelet Volume 8.4 fL (7.4-10.4); Platelet Count 167 thou/uL (130-400); Red Blood Cell (RBC) Count 3.97 mill/uL (4.20-5.40); White Blood Cell (WBC) Count 6.6 thou/uL (4.8-10.8)
[2019-03-28 05:57] LABS: Anion Gap 9 mmol/L (10-20); BUN (Urea Nitrogen) 14 mg/dL (9.8-20.1); Calc. Creatinine Clearance 105 mL/min (70-130); Carbon Dioxide 24 mmol/L (23-31); Chloride 105 mmol/L (98-107); Estimated GFR-MDRD 90; Glucose 92 mg/dL (83-110); Potassium 4.1 mmol/L (3.5-5.1); Sodium 134 mmol/L (136-145)
[2019-03-28] MEDS: NS 0.9% w/ 20 MEQ KCL 1,000 ML/1,000 ML BAG IV SCH (08:40)
--- NOTE | 2019-03-28 10:44 | PDOC.HOSPP ---
- Subjective Subjective: Patient seen and examined. No new complaints. No overnight events - Objective Vital Signs & Weight: Vital Signs (12 hours) Temp Pulse Pulse Pulse Resp BP BP 03/28/19 08:28 68 69 152/70 H 150/70 H 03/28/19 07:15 97.9 F 76 18 03/28/19 03:45 97.9 F 77 20 BP Pulse Ox 03/28/19 08:28 03/28/19 07:15 149/82 H 99 03/28/19 03:45 125/57 L 97 Weight Weight 192 lb 6.4 oz I&O: 03/27/19 03/28/19 03/29/19 06:59 06:59 06:59 Intake Total 400 2739 Output Total 350 1775 Balance 50 964 Result Diagrams: 03/28/19 04:56 03/28/19 04:56 EKG Reviewed by me: Yes ROS - Review of Systems All systems: All other ROS were reviewed and found negative. Constitutional: denies: fever, chills, sweats, weakness, malaise, other ENT: denies: ear pain, ear discharge, nose pain, nose discharge, nose congestion , mouth pain, mouth swelling, throat pain, throat swelling, other Respiratory: denies: cough, dry, shortness of breath, hemoptysis, SOB with excertion, pleuritic pain, sputum, wheezing, other Cardiovascular: denies: chest pain, palpitations, orthopnea, paroxysmal noc. dyspnea, edema, light headedness, other Gastrointestinal: denies: nausea, vomitting, abdominal pain, diarrhea, constipation, melena, hematochezia, other Genitourinary: denies: dysuria, frequency, incontinence, hematuria, retention, other Musculoskeletal: denies: neck pain, shoulder pain, arm pain, back pain, hand pain, leg pain, foot pain, other Skin: denies: rash, lesions, verito, bruising, other - Medication Medications: Active Medications Generic Name Dose Route Start Last Admin Trade Name Freq PRN Reason Stop Dose Admin Acetaminophen 650 mg 03/26/19 19:20 03/27/19 09:49 Tylenol PO 650 mg Q4H PRN Administration Headache/Fever/Mild Pain (1-3) Apixaban 5 mg 03/26/19 21:00 03/27/19 20:15 Eliquis PO 5 mg BID AMNA Administration Atorvastatin Calcium 10 mg 03/27/19 09:00 03/27/19 08:19 Lipitor PO 10 mg DAILY AMNA Administration Dronedarone 400 mg 03/27/19 08:00 03/27/19 16:12 Multaq PO 400 mg BID-WM AMNA Administration Famotidine 20 mg 03/26/19 21:00 03/27/19 20:15 Pepcid PO 20 mg BID AMNA Administration Potassium Chloride/Sodium Chloride 1,000 ml in 1,000 mls @ 100 mls/hr 07:15 03/28/19 08:40 Ns 0.9% W/ 20 Meq Kcl IV 1,000 mls .Q10H AMNA Administration Sodium Chloride 10 ml 03/26/19 19:20 03/26/19 20:34 Flush - Normal Saline IVF 10 ml Q12HR PRN Administration Saline Flush - Exam NAD, awake alert Eye: PERRL, anicteric sclera ENT: normocephalic atraumatic, no oropharyngeal lesions Neck: supple, symmetric, no Thyromegaly Heart: RRR, no murmur, no gallops, no rubs Respiratory: CTAB, no wheezes, no rales, no ronchi Gastrointestinal: soft, non-tender, non-distended, normal bowel sounds Extremities: no cyanosis, no clubbing, no edema Skin: normal turgor, no lesions, no rashes Neurological: CN's grossly intact, normal sensation to touch, no focal deficits Musculoskeletal: normal tone, normal strength, no muscle wasting Psychiatric: normal affect, normal behavior, A&O x 3 Hosp A/P (1) Atrial fibrillation Code(s): I48.91 - UNSPECIFIED ATRIAL FIBRILLATION Status: Acute Qualifiers: Atrial fibrillation type: paroxysmal Qualified Code(s): I48.0 - Paroxysmal atrial fibrillation (2) Hypokalemia Code(s): E87.6 - HYPOKALEMIA Status: Acute (3) Hyponatremia Code(s): E87.1 - HYPO-OSMOLALITY AND HYPONATREMIA Status: Acute (4) Orthostatic hypotension Code(s): I95.1 - ORTHOSTATIC HYPOTENSION Status: Acute (5) Syncope Code(s): R55 - SYNCOPE AND COLLAPSE Status: Acute (6) Dyslipidemia Code(s): E78.5 - HYPERLIPIDEMIA, UNSPECIFIED Status: Chronic (7) Hypertension Code(s): I10 - ESSENTIAL (PRIMARY) HYPERTENSION Status: Chronic (8) Obesity (BMI 30.0-34.9) Code(s): E66.9 - OBESITY, UNSPECIFIED Status: Chronic (9) Sleep apnea Code(s): G47.30 - SLEEP APNEA, UNSPECIFIED Status: Chronic - Plan old records reviewed/req today stress test as per cardiology will consider discharge if stress test negative medication reviewed as below symptomatic treatment
[2019-03-28] MEDS: Famotidine 20 MG TAB PO SCH (10:47)
[2019-03-28] MEDS: Dronedarone HCl 400 MG TAB PO SCH (10:47)
[2019-03-28] MEDS: Apixaban 5 MG TAB PO SCH (10:47)
[2019-03-28] MEDS: Atorvastatin Calcium 10 MG TAB PO SCH (10:47)
--- NOTE | 2019-03-28 11:08 | NM ---
EXAM: CARDIAC SPECT HISTORY: Chest pain TECHNIQUE: A myocardial perfusion scan was performed using the single isotope 2 day protocol with julien hnetium 99m sestamibi. [30 mCi] was injected intravenously for the rest exam followed by 30 mCi for the stress study. Pharmacologic stress with adenosine was monitored and interpreted by Dr. Mcdaniel. FINDINGS: Homogeneous tracer distribution is seen in the myocardial segments on stress and rest image s without fixed or reversible defects. Gated SPECT LVEF: 73% Wall motion exam: Normal IMPRESSION: Normal myocardial perfusion scan
--- NOTE | 2019-03-28 11:35 | DIS ---
DATE OF ADMISSION: 03/26/2019 DATE OF DISCHARGE: 03/28/2019 DISCHARGE DISPOSITION: Home. PRIMARY DISCHARGE DIAGNOSES: 1. Syncope likely due to orthostatic hypotension. 2. Hyponatremia and hypokalemia due to volume depletion. SECONDARY DISCHARGE DIAGNOSES: 1. Paroxysmal atrial fibrillation. 2. Dyslipidemia. 3. Hypertension. 4. Obesity with BMI 35. 5. Sleep apnea. PRIMARY PROCEDURE/OPERATION: None. RADIOLOGICAL INVESTIGATION: CT of brain is negative. Chest x-ray is normal. Stress test is negative. SIGNIFICANT LABORATORY DATA: Hemoglobin 13.0. D-dimer less than 0.27. Creatinine 0.64, sodium 134, potassium 4.1. Cardiac enzyme negative x3. DISCHARGE MEDICATIONS: 1. Eliquis 5 mg p.o. b.i.d. 2. Lipitor 10 mg p.o. daily. 3. Multaq 400 mg p.o. b.i.d. 4. Lisinopril 5 mg p.o. daily. 5. Claritin 10 mg p.o. daily p.r.n. CONTRAINDICATION: None. CODE STATUS: Full code. INPATIENT SKETCH ARTIST: Dr. Rueda. TEST RESULTS PENDING ON DISCHARGE: None. ALLERGIES: NO KNOWN DRUG ALLERGIES. DISCHARGE PLAN: Posthospital, the patient will follow up with primary care physician and sand digger as instructed. HOSPITAL COURSE: A 73-year-old female, who was recently admitted in the hospital and she was discharged home and on the same day in evening time, she came back for syncopal episode. At that time, the patient was having low blood pressure. Her orthostatic vitals were positive. She also had hyponatremia, hypokalemia. The patient was given IV fluid and her sodium, potassium improved. Her orthostatic hypotension resolved. The patient has paroxysmal atrial fibrillation and some arrhythmias supraventricular and that is why Cardiology decided to do stress test during this admission and that came back negative. Overall, the patient's vital signs improved. The patient will continue all her previous medication. If Cardiology is okay, then we will consider discharging her home later on today. Job ID: [id number]
[2019-03-28 11:59] VITALS: BP 147/63; TEMP 98.1
--- NOTE | 2019-03-28 12:34 | PDOC.CTH ---
Cardiology Progress Note - Subjective The pt seen and examined. No overnight events. No cardiac complaints. - Objective Vital Signs Temp Pulse Pulse Pulse Resp BP BP 03/28/19 11:14 98.1 F 75 18 03/28/19 08:28 68 69 152/70 H 150/70 H 03/28/19 07:15 97.9 F 76 18 03/28/19 03:45 97.9 F 77 20 BP Pulse Ox 03/28/19 11:14 147/63 H 100 03/28/19 08:28 03/28/19 07:15 149/82 H 99 03/28/19 03:45 125/57 L 97 Weight 192 lb 6.4 oz 03/27/19 03/28/19 03/29/19 06:59 06:59 06:59 Intake Total 400 2739 Output Total 350 1775 Balance 50 964 - Physical Examination General/Neuro: alert & oriented x3 Neck: no JVD present Lungs: CTA Heart: RRR Abdomen: soft Extremities: other: (No edema) - Telemetry Telemetry Rhythm: SR - Labs Result Diagrams: 03/28/19 04:56 03/28/19 04:56 Troponin/CKMB Troponin I Less than 0.010 ng/mL (< 0.028) 03/26/19 23:33 - Assessment/Plan 1. S/p syncopal episode possible 2/2 orthstatic Hypotension - her orth BP has been stable after she started having more fluid. Stress test showed no reversible ischemia. No LINQ placement for now, but d/c home with 7 day EVR. 2. Parox Afib - No afib episodes since yesterday; On Multaq and Eliquis 5mg BID 3. Orthostatic hypotension - stable after volume replacement; strongly recommend to have more fluid at home 4. Hypokalemia - resolved 5. HLD - 6. NOLAN with Cpap at HS 7. Obese - regular exercise was recommended to the pt MAR reviewed * The pt is stable to d/c home. The pt will have 7 day EVR and f/u with Dr Rueda ' office within 2 wks. * Strongly recommend to have more fluid and check VS at least daily. Review of Systems - Review of Systems Constitutional: reports: no symptoms reported EENTM: reports: no symptoms reported Respiratory: reports: no symptoms reported Cardiac (ROS): reports: no symptoms reported ABD/GI: reports: no symptoms reported : reports: no symptoms reported Musculoskeletal: reports: no symptoms reported
[2019-03-28] MEDS ORDERED: ADENOSINE 60 MG/20 ML VIAL ONE (15:53)
--- NOTE | 2019-03-30 15:41 | EKG ---
Test Reason : SYNCOPE Blood Pressure : / mmHG Vent. Rate : 082 BPM Atrial Rate : 082 BPM P-R Int : 126 ms QRS Dur : 088 ms QT Int : 390 ms P-R-T Axes : 055 024 011 degrees QTc Int : 455 ms Sinus rhythm with Premature supraventricular complexes Otherwise normal ECG Confirmed by ROSY PEREZ, DEEDEE Perez ([id number]), metropolitan editor KATHERYN KIM ([id number]) on 03/30/2019 3:40:48 PM Referred By: Confirmed By:DEEDEE GALLEGOS MD
== END 2019-03-28 13:48 | disposition home or self-care (01) ==
LOC: ERS 16:50 → 2SW 20:03
PROVIDERS: ADMIT Internal Medicine; ATTEND Internal Medicine
DX: R55 Syncope and collapse (principal); E86.9 Volume depletion, unspecified; E87.6 Hypokalemia; E87.1 Hypo-osmolality and hyponatremia; I48.0 Paroxysmal atrial fibrillation; E78.5 Hyperlipidemia, unspecified; I10 Essential (primary) hypertension; E66.9 Obesity, unspecified; G47.33 Obstructive sleep apnea (adult) (pediatric); Z68.35 Body mass index [BMI] 35.0-35.9, adult; Z99.89 Dependence on other enabling machines and devices; Z79.01 Long term (current) use of anticoagulants; Z79.899 Other long term (current) drug therapy
CPT/HCPCS: 70450; 71046; 78452; 80048 ×2; 80053; 82550; 83735; 84484 ×2; 85025 ×3; 85379; 93005; 93017; 96360; 96361 ×2; 97116; 97139 ×4; 99285; A9500; G0378 ×4; 36415; J0153; J3480

== ENCOUNTER 2019-12-20 09:15 | Emergency (ER) | payer MEDICARE, BC ==
[2019-12-20] MEDS ORDERED: Adacel (T-DAP) 0.5 ML SYRINGE ONE (10:23)
--- NOTE | 2019-12-20 10:29 | CT ---
BRAIN CT WITHOUT IV CONTRAST: Date: 12/20/2019 HISTORY: Injury. COMPARISON: 03/26/2019. FINDINGS: No focal mass or midline shift. No intra or extra-axial hemorrhage. Sinuses and mastoids are clear of acute process. IMPRESSION: No significant acute intracranial process. No mass or bleed. Mild atrophy. Stable from prior study. POS: [facility]
--- NOTE | 2019-12-20 10:30 | CT ---
CT CERVICAL SPINE WITH CORONAL AND SAGITTAL REFORMATIONS: Date: 12/20/2019 HISTORY: Fall. Neck pain. FINDINGS/IMPRESSION: There is loss of cervical lordosis with mild reversal. Multilevel degenerative changes are present. N o acute fracture, subluxation, or facet malalignment is identified. POS: [facility]
--- NOTE | 2019-12-20 10:32 | CT ---
FACIAL BONES CT SCAN WITHOUT IV CONTRAST: Date: 12/20/2019 HISTORY: Injury from a fall, bruise over left orbital region. FINDINGS: Minimal left lateral periorbital soft tissue swelling. No evidence for acute orbital fracture. Zygoma tic arches are intact. Mild sinus mucosal disease. Mandible is intact. There are some right-sided den isatu caries. Mastoids appear clear. The nasal bone is intact. IMPRESSION: Minimal lateral periorbital soft tissue swelling. No fracture or dislocation. Mild sinus mucosal dise ase. POS: [facility]
--- NOTE | 2019-12-20 10:38 | RAD ---
LEFT HIP 2 VIEWS: Date: 12/20/2019 HISTORY: Trip and fall. COMPARISON: None. FINDINGS: There is heterotopic ossification along the lateral thigh. No acute displaced fracture or malalignmen t. Obturator ring is intact. Mild enthesopathic changes of the greater trochanter. IMPRESSION: No acute displaced fracture or malalignment. POS: [facility]
--- NOTE | 2019-12-20 10:40 | RAD ---
LEFT HUMERUS 2 VIEWS: Date: 12/20/2019 HISTORY: Fall. COMPARISON: None. FINDINGS: The left greater tuberosity footprint has a central erosion. Round radiopacities noted over the dorsa l aspect of the arm. The humerus itself is intact. IMPRESSION: 1. Small erosion of the footprint of the greater tuberosity. This is felt to be degenerative in natu re and much less likely a small avulsive fracture. 2. Likely soft tissue calcifications along the dorsal lateral soft tissues. POS: [facility]
--- NOTE | 2019-12-20 10:42 | RAD ---
LEFT RIBS: DATE: 12/20/2019 HISTORY: Tripped and fell. COMPARISON: Reference made to chest radiograph dated 03/25/2019. FINDINGS: The ribs are intact. No acute displaced fracture or malalignment. Mildly distended loops of bowel in the upper abdomen. Left lung is clear. No pneumothorax. No significant effusion. Chronic elevation left hemidiaphragm. IMPRESSION: No displaced left rib fractures. POS: [facility]
--- NOTE | 2019-12-20 10:44 | RAD ---
LEFT FOOT 3 VIEWS: Date: 12/20/2019 HISTORY: Fall. COMPARISON: None. FINDINGS: There is a fracture, intraarticular, proximal phalanx of second toe through the medial margin. Old gr eat toe metatarsal neck fracture/bunionectomy change. Large osteophyte formation along the great toe metatarsophalangeal joint. Moderate degenerative disease of the Lisfranc interval. IMPRESSION: 1. Intraarticular fracture through the base of the proximal phalanx of second toe, likely an avulsiv e-type fracture from capsular ligamentous insertion. 2. Likely prior bunionectomy change of the great toe with continued lateral subluxation and large os teophyte formation. 3. Mild to moderate midfoot degenerative changes. POS: [facility]
== END 2019-12-20 12:00 | disposition home or self-care (01) ==
LOC: ERS 09:15
DX: S92.512A Displaced fracture of proximal phalanx of left lesser toe(s), initial encounter for closed fracture (principal); S00.83XA Contusion of other part of head, initial encounter; I48.91 Unspecified atrial fibrillation; I10 Essential (primary) hypertension; Z79.899 Other long term (current) drug therapy; W01.0XXA Fall on same level from slipping, tripping and stumbling without subsequent striking against object, initial encounter
CPT/HCPCS: 70450; 70486; 72125; 90471; 90715

== ENCOUNTER 2021-02-06 12:20 | Outpatient (CLI) | payer MEDICARE, BC | END 2021-02-06 12:21 | disposition home or self-care (01) | LOC: MRI 12:20 | PROVIDERS: ATTEND Psychiatry & Neurology Neurology | DX: G62.9 Polyneuropathy, unspecified (principal); M48.061 Spinal stenosis, lumbar region without neurogenic claudication; M51.36 Other intervertebral disc degeneration, lumbar region | CPT/HCPCS: 71045; 72148 ==

== ENCOUNTER 2022-03-05 11:26 | Outpatient (CLI) | payer MEDICARE, BC ==
[2022-03-05 12:46] LABS: Hemoglobin 13.5 g/dL (12.0-15.5); Mean Corpuscular HGB CONC 33.7 g/dL (32.0-36.0); Mean Corpuscular Hemoglobin 32.1 pg (27.0-33.0); Mean Corpuscular Volume 95.5 fl (81.6-98.3); Mean Platelet Volume 11.8 fl (7.4-10.4); Platelet Count 175 10x3/uL (150-450); RBC Distribution Width 13.3 % (11.5-14.5); White Blood Cell (WBC) Count 7.8 10x3/uL (3.5-10.5)
[2022-03-05 12:57] LABS: INR-International Normal Ratio 1.1; PTT 31.6 sec (22.0-33.0); Prothrombin Time 12.3 sec (9.5-12.1)
[2022-03-05 13:02] LABS: Anion Gap 17 mmol/L (10-20); BUN (Urea Nitrogen) 18 mg/dL (9.8-20.1); Calc. Creatinine Clearance 0 mL/min (70-130); Calcium 9.4 mg/dL (7.8-10.44); Carbon Dioxide 26 mmol/L (23-31); Chloride 100 mmol/L (98-107); Estimated GFR 73; Glucose 98 mg/dL (83-110); Potassium 4.6 mmol/L (3.5-5.1); Sodium 138 mmol/L (136-145)
== END 2022-03-05 11:27 | disposition home or self-care (01) ==
LOC: LABBT 11:26
PROVIDERS: ATTEND Internal Medicine Cardiovascular Disease
DX: Z01.812 Encounter for preprocedural laboratory examination (principal); I48.0 Paroxysmal atrial fibrillation; Z20.822 Contact with and (suspected) exposure to COVID-19
CPT/HCPCS: 80048; 85027; 85610; 85730; 87811

== ENCOUNTER 2022-03-10 08:56 | Observation (INO) | payer MEDICARE, BC ==
[2022-03-10] MEDS ORDERED: Protamine Sulfate 50 MG/5 ML VIAL ONE (11:19)
[2022-03-10] MEDS ORDERED: Heparin 10,000 UNITS/ 10 ML VIAL ONE (11:19)
[2022-03-10] MEDS ORDERED: Isoproterenol 0.2 MG/1 ML AMP ONE (11:19)
[2022-03-10] MEDS ORDERED: Heparin 25,000 units/D5W 500 ML ONE (11:19)
[2022-03-10] MEDS ORDERED: fentaNYL Citrate/PF 100 MCG/2 ML SYRINGE ONE (12:29)
[2022-03-10] MEDS ORDERED: Phenylephrine 10 MG/ML VIAL ONE ×2 (12:30→12:51)
[2022-03-10] MEDS ORDERED: Lidocaine 1% PF 5 ML VIAL ONE (12:30)
[2022-03-10] MEDS ORDERED: Rocuronium Bromide 10 MG/ML (10ML VIAL) ONE (12:30)
[2022-03-10] MEDS ORDERED: PROPOFOL 200 MG/20 ML VIAL ONE (12:30)
[2022-03-10] MEDS ORDERED: Ondansetron PF 4 MG/2 ML Vial ONE ×2 (12:30→19:30)
[2022-03-10] MEDS ORDERED: Dexamethasone 20 MG/5 ML VIAL ONE (12:30)
[2022-03-10] MEDS ORDERED: Glycopyrrolate 0.2 MG/ML 5 ML SYRINGE ONE (12:30)
[2022-03-10] MEDS ORDERED: Fentanyl 100 MCG/2 ML VIAL ONE (14:14)
[2022-03-10] MEDS ORDERED: Promethazine HCl 25 MG/ML VIAL IVPB PRN (16:37)
[2022-03-10] MEDS ORDERED: Ondansetron HCl/PF 4 MG/2 ML Vial IVP PRN (16:37)
[2022-03-10] MEDS ORDERED: Promethazine HCl 25 MG/ML VIAL IM PRN (16:37)
[2022-03-10] MEDS ORDERED: PHENYLEPHRINE-NS 100 MCG/ML 10 ML SYRINGE ONE (16:57)
[2022-03-10] MEDS ORDERED: Dronedarone HCl 400 MG TAB PO PRN (18:58)
[2022-03-10 21:29] VITALS: BMI 36.3
[2022-03-10] MEDS ORDERED: Apixaban 5 MG TAB PO SCH (21:30)
[2022-03-10] MEDS ORDERED: Ketorolac Tromethamine 30 MG/ML VIAL IVP PRN (23:12)
[2022-03-10] MEDS ORDERED: Acetaminophen/Codeine 30-300mg Tablet PO PRN ×2 (23:12)
[2022-03-11] MEDS ORDERED: Metoprolol Tartrate 50 MG TAB PO SCH (09:00)
[2022-03-11] MEDS ORDERED: Furosemide 20 MG TAB PO SCH (09:00)
[2022-03-11] MEDS ORDERED: Lisinopril 5 MG TAB PO SCH (09:00)
[2022-03-11] MEDS ORDERED: Apixaban 5 MG TAB PO SCH (09:00)
[2022-03-11] MEDS ORDERED: Atorvastatin Calcium 10 MG TAB PO SCH (09:00)
[2022-03-11] MEDS ORDERED: Furosemide 40 MG/4 ML VIAL SLOW IVP SCH (09:15)
[2022-03-11] MEDS ORDERED: Potassium Chloride 20 MEQ TAB PO SCH (09:15)
[2022-03-11 12:05] VITALS: BP 164/77; TEMP 97.9
[2022-03-11] MEDS ORDERED: Dronedarone HCl 400 MG TAB PO SCH (21:00)
== END 2022-03-11 15:36 | disposition home or self-care (01) ==
LOC: SDC 08:56 → 2NO 19:01
PROVIDERS: ADMIT Internal Medicine Cardiovascular Disease; ATTEND Internal Medicine Cardiovascular Disease
PROC: B244ZZ3 Ultrasonography of Right Heart, Intravascular (ICD-10-PCS; principal; 2022-03-10)
PROC: 02583ZZ Destruction of Conduction Mechanism, Percutaneous Approach (ICD-10-PCS; 2022-03-10)
PROC: 02K83ZZ Map Conduction Mechanism, Percutaneous Approach (ICD-10-PCS; 2022-03-10)
PROC: 4A023FZ Measurement of Cardiac Rhythm, Percutaneous Approach (ICD-10-PCS; 2022-03-10)
PROC: 4A0234Z Measurement of Cardiac Electrical Activity, Percutaneous Approach (ICD-10-PCS; 2022-03-10)
DX: I48.0 Paroxysmal atrial fibrillation (principal); I48.92 Unspecified atrial flutter; I51.7 Cardiomegaly; I49.5 Sick sinus syndrome; Z79.01 Long term (current) use of anticoagulants; Z79.899 Other long term (current) drug therapy; Z95.0 Presence of cardiac pacemaker
CPT/HCPCS: 85347 ×2; 93005 ×2; 93613; 93623; 93655; 93657; 93662; C1732 ×3; C1760; C1884; 93010; 96374; G0378; J1100; J1644; J1940; J2370; J2405; J2704; J2710; J2720; J3010

== ENCOUNTER 2022-04-15 19:30 | Outpatient (CLI) | payer MEDICARE, BC | END 2022-04-15 19:31 | disposition home or self-care (01) | LOC: SLEEPLAB 19:30 | PROVIDERS: ATTEND Family Medicine | DX: G47.33 Obstructive sleep apnea (adult) (pediatric) (principal); R53.83 Other fatigue; R06.83 Snoring; G47.00 Insomnia, unspecified; I48.91 Unspecified atrial fibrillation; G47.31 Primary central sleep apnea; I10 Essential (primary) hypertension; G47.10 Hypersomnia, unspecified; E66.9 Obesity, unspecified; Z68.36 Body mass index [BMI] 36.0-36.9, adult | CPT/HCPCS: 95810 ==

== ENCOUNTER 2022-04-17 12:53 | Outpatient (CLI) | payer MEDICARE, BC ==
[2022-04-17 14:03] LABS: Hemoglobin 13.4 g/dL (12.0-15.5); Mean Corpuscular HGB CONC 33.9 g/dL (32.0-36.0); Mean Corpuscular Volume 91.4 fl (81.6-98.3); Mean Platelet Volume 11.5 fl (7.4-10.4); Platelet Count 189 10x3/uL (150-450); RBC Distribution Width 13.1 % (11.5-14.5); Red Blood Cell (RBC) Count 4.32 10x6/uL (3.90-5.03); White Blood Cell (WBC) Count 6.7 10x3/uL (3.5-10.5)
[2022-04-17 14:32] LABS: Anion Gap 15 mmol/L (10-20); BUN (Urea Nitrogen) 16 mg/dL (9.8-20.1); Calc. Creatinine Clearance 0 mL/min (70-130); Calcium 9.5 mg/dL (7.8-10.44); Carbon Dioxide 25 mmol/L (23-31); Chloride 100 mmol/L (98-107); Estimated GFR 81; Glucose 104 mg/dL (83-110); Potassium 4.5 mmol/L (3.5-5.1); Sodium 135 mmol/L (136-145)
== END 2022-04-17 12:54 | disposition home or self-care (01) ==
LOC: LABBT 12:53
PROVIDERS: ATTEND Internal Medicine Cardiovascular Disease
DX: Z01.812 Encounter for preprocedural laboratory examination (principal); Z20.822 Contact with and (suspected) exposure to COVID-19
CPT/HCPCS: 80048; 85027; 85610; 87811

== ENCOUNTER 2022-06-05 19:00 | Outpatient (CLI) | payer MEDICARE, BC | END 2022-06-05 19:01 | disposition home or self-care (01) | LOC: SLEEPLAB 19:00 | PROVIDERS: ATTEND Family Medicine | DX: G47.33 Obstructive sleep apnea (adult) (pediatric) (principal); R53.83 Other fatigue; E66.9 Obesity, unspecified; R06.83 Snoring; G47.00 Insomnia, unspecified; I48.91 Unspecified atrial fibrillation; Z68.36 Body mass index [BMI] 36.0-36.9, adult | CPT/HCPCS: 95811 ==

== ENCOUNTER 2023-01-15 10:47 | Outpatient (CLI) | payer MEDICARE, BC | END 2023-01-15 10:48 | disposition home or self-care (01) | LOC: BICMAMMO 10:47 | PROVIDERS: ATTEND Family Medicine | DX: Z12.31 Encounter for screening mammogram for malignant neoplasm of breast (principal) | CPT/HCPCS: 77063; 77067 ==

== ENCOUNTER 2024-01-19 09:56 | Outpatient (CLI) | payer MEDICARE, BC | END 2024-01-19 09:57 | disposition home or self-care (01) | LOC: BICMAMMO 09:56 | PROVIDERS: ATTEND Family Medicine | DX: Z12.31 Encounter for screening mammogram for malignant neoplasm of breast (principal); Z13.820 Encounter for screening for osteoporosis; Z78.0 Asymptomatic menopausal state; M81.0 Age-related osteoporosis without current pathological fracture | CPT/HCPCS: 77063; 77067; 77080 ==

== ENCOUNTER 2024-02-08 12:24 | Emergency (ER) | payer MEDICARE, BC | END 2024-02-08 16:04 | disposition home or self-care (01) | LOC: ERS 12:24 | DX: S70.02XA Contusion of left hip, initial encounter (principal); I10 Essential (primary) hypertension; W18.30XA Fall on same level, unspecified, initial encounter | CPT/HCPCS: 72100 ==